=== PATIENT | female | born 2005 | race Two or more races ===

== ENCOUNTER → 2025-08-25 | Outpatient (REF) | payer OTHER | LOC: M PLALAB 13:33 | PROVIDERS: ATTEND Advanced Practice Midwife | DX: Z53.9 Procedure and treatment not carried out, unspecified reason (principal) ==

== ENCOUNTER → 2025-08-25 | Outpatient (CLI) | payer OTHER ==
[2025-08-25 17:29] LABS: PLATELET COUNT, AUTOMATED 267 10^3/uL (150-450)
[2025-08-25 17:52] LABS: HIV 1&2 SCREEN NEGATIVE (NEGATIVE)
[2025-08-25 18:00] LABS: HEPATITIS C VIRUS ABY INDEX < 0.02 INDEX (<0.8)
[2025-08-25 18:34] LABS: Trichomonas vaginalis (AMP) NOT DETECTED (NEGATIVE)
[2025-08-25 18:57] LABS: GC DNA AMPLIFICATION NEGATIVE (NEGATIVE)
== END ==
LOC: M PLALAB 14:10
PROVIDERS: ATTEND Advanced Practice Midwife
DX: Z34.82 Encounter for supervision of other normal pregnancy, second trimester (principal)

== ENCOUNTER → 2025-09-23 | Outpatient (CLI) | payer OTHER ==
[2025-09-23 11:30] LABS: ESTIMATED AVERAGE GLUCOSE 97.0 MG/DL (60-110)
== END ==
LOC: M PLALAB 08:27
PROVIDERS: ATTEND Advanced Practice Midwife
DX: O99.212 Obesity complicating pregnancy, second trimester (principal); E66.9 Obesity, unspecified; Z3A.00 Weeks of gestation of pregnancy not specified